=== PATIENT | male | born 2000 | race Caucasian/White ===

== ENCOUNTER 2021-05-13 10:07 | Emergency (ER) | payer BC, SELFPAY ==
--- NOTE | ~2021-05-13 | XR_ITS ---
EXAMINATION: XR abdomen obstructive series EXAM DATE: 05/13/2021 11:05 INDICATION: Constipation, lower abdominal pain. TECHNIQUE: Frontal upright projection of the upper abdomen, frontal projection of the lower abdomen f or interpretation. There is no prior study for comparison. FINDINGS: There is moderate amount of colonic stool and gas. No small bowel dilation, nonobstructiv e bowel gas pattern. There are no suspicious calcifications identified. There is no organomegaly suspected. The bones are unremarkable. There is no free intraperitoneal air. The lung bases are clear. IMPRESSION: Moderate amount of colonic stool. Reviewed, dictated and finalized at location B.
[2021-05-13 10:22] VITALS: BP 132/83; PULSE 95; RESP 16; TEMP 36.8; O2SAT 100
--- NOTE | 2021-05-13 10:57 | ED.ABDPAIN ---
HPI - Abdominal Pain General Chief Complaint: Urogenital-Male Stated Complaint: bladder/testicular pain x 2 days Time Seen by Provider: 05/13/21 10:48 Source: patient and RN notes reviewed Mode of arrival: ambulatory Limitations: no limitations History of Present Illness HPI narrative: This is a 21 year old male who presents for evaluation of intermittent lower abdominal pain. Patient states yesterday morning he woke with suprapubic pain that lasted for 30 minutes. He states his pain resolved after having bowel movement and urinating in the morning. He also reports he noticed pain again this morning when he woke up at 5 am. He has not had pain for at least 3 hours ago. His pain is not associated with fever, nausea, vomiting, diarrhea, dysuria, hematuria. He does reports he thinks he is constipated. He denies any pain now. Related Data Allergies Allergy/AdvReac Type Severity Reaction Status Date / Time No Known Allergies Allergy Mild Verified 02/15/12 18:22 Review of Systems Review of Systems: All systems reviewed & are unremarkable except as noted in HPI and below PMFSH Past Medical History Medical History (Updated 05/13/21 @ 12:22 by Olena Boyd MD) Patient denies medical problems Surgical History Surgical History (Updated 05/13/21 @ 11:00 by Olena Boyd MD) No pertinent past surgical history Social History Social History (Updated 05/13/21 @ 11:01 by Olena Boyd MD) Smoking status: Never smoker Exam Const: General: no acute distress and alert Orientation/consciousness: patient oriented x3 Eyes: EOM: EOMs intact bilaterally Resp: Effort & Inspection: normal respiratory effort and no retractions Auscultation: clear to auscultation bilaterally Cardio: Rate: regular rate Rhythm: regular rhythm Heart sounds: no murmurs GI: GI Palp: Yes Soft to palpation, No Tenderness to palpation present (GI) and No Guarding due to palpation present (GI) Auscultation: normal bowel sounds : Male General Exam: Yes normal external exam Skin: General skin exam: normal color Rashes: no rashes Neuro: General: patient oriented x3, moves all extremities and CN's II-XI intact bilaterally Course Reevaluation(s) Reevaluation #1: Patient still has no pain. I reviewed discharge plan to start bowel regimen. He states he made an appointment with PCP already to follow up Date: 05/13/21 Time: 12:20 Vital Signs Vital signs: Vital Signs Temperature 98.2 F 05/13/21 10:22 Pulse Rate 95 05/13/21 10:22 Respiratory Rate 16 05/13/21 10:22 Blood Pressure 132/83 05/13/21 10:22 Pulse Oximetry 100 05/13/21 10:22 Temperature 98.2 F 05/13/21 10:22 Pulse Rate 95 05/13/21 10:22 Respiratory Rate 16 05/13/21 10:22 Blood Pressure 132/83 05/13/21 10:22 Pulse Oximetry 100 05/13/21 10:22 MDM - Abdominal Pain Lab Data Attestation: I reviewed the patient's lab results. Labs: Lab Results 05/13/21 Range/Units 11:44 Urine Color Colorless (Yellow) Urine Appearance Clear (Clear) Urine pH 7.0 (5.0-9.0) Ur Specific [place] 1.003 (1.001-1.035) Urine Protein Negative (Negative) mg/dL Urine Glucose (UA) Negative (Negative) mg/dL Urine Ketones Negative (Negative) mg/dL Ur Blood (Man) Negative (Negative) Urine Nitrate Negative (Negative) Urine Bilirubin Negative (Negative) Urine Urobilinogen Negative (<2.0) mg/dL Leukocyte Esterase Rfl Negative (Negative) IRAJ/UL Imaging Data Radiologist's impression: ITS Impressions Abdomen X-Ray 05/13/21 11:06 IMPRESSION: Moderate amount of colonic stool. Discharge Plan Discharge Clinical Impression: Constipation Patient Disposition: Home, Self-Care Condition: Stable Instructions: Antibiotic Form, Constipation (ED), High Fiber Diet (ED) Prescriptions: New polyethylene glycol 3350 [Miralax] 17 gram powder in packet 17 g PO DAILY Qty: 14 RF:
[2021-05-13 11:56] LABS: Add Urine Microscopic? NO; Appearance Urine Clear (Clear); Bilirubin Urine Negative (Negative); Blood Urine Negative (Negative); Color Urine Colorless (Yellow); Glucose Urine UA Negative (Negative); Ketones Urine Negative (Negative); Leukocyte Esterase Ur Negative LEU/UL (Negative); Nitrate Urine Negative (Negative); Protein Urine Negative (Negative); Urobilinogen Urine Negative mg/dL (<2.0)
[2021-05-13 11:59] LABS: Specific Grav Ur 1.003 (1.001-1.035)
== END 2021-05-13 12:33 | disposition home or self-care (01) ==
PROVIDERS: Emergency Provider General Practice
DX: K59.00 Constipation, unspecified (principal)
CPT/HCPCS: 74019; 81003; 99283